=== PATIENT | female | born 2005 | race Caucasian/White ===

== ENCOUNTER 2024-03-06 18:48 | Emergency (ER) | payer OTHER, SELFPAY ==
[2024-03-06 18:59] VITALS: BP 124/58; PULSE 85; RESP 16; TEMP 37.1; O2SAT 100
[2024-03-06 19:20] LABS: EDUAAPPEAR Clear; EDUABILI Negative (Negative); EDUABLOOD Negative (Negative); EDUACOLOR1 Yellow; EDUAGLUCOSE Negative (Negative); EDUAKETONE Negative (Negative); EDUALEUKO Negative (Negative); EDUANITRATE Negative (Negative); EDUAPROTEIN Negative (Negative); EDUASPGRAVITY 1.015; EDUAUROBILI 0.2
--- NOTE | 2024-03-06 19:36 | ED.FEMALEGU ---
HPI - Female Genitourinary General Chief complaint: Urogenital-Female Stated complaint: UTI SYMPTOMS Time Seen by Provider: 03/06/24 19:07 Source: patient and RN notes reviewed Mode of arrival: ambulatory Limitations: no limitations History of Present Illness HPI Narrative: Patient presents today complaining of dysuria, malodorous urine, mild urinary frequency and lower abdominal cramping. Denies fever, nausea or vomiting, sweats or chills. No treatment prior to arrival. Review of Systems Review of Systems: CONSTITUTIONAL: Denies body aches, fever, chills, or sweats. EYES: Denies visual changes, redness, or discharge. ENT: Denies rhinorrhea, congestion, sore throat, or otalgia. CARDIOVASCULAR: Denies chest pain, palpitations, or edema. RESPIRATORY: Denies cough or dyspnea. GASTROINTESTINAL: Denies abdominal pain, nausea, vomiting, or diarrhea. GENITOURINARY: +dysuria, frequency, cramping, malodorous urine SKIN: Denies rash, itching, or wounds. MUSCULOSKELETAL: Denies back pain, joint pain, or myalgia. NEUROLOGIC: Denies headache, numbness, tingling, or weakness. PSYCH: Denies depression or anxiety. PMFSH Comments At time of signature, I have reviewed and agree with nursing past medical, surgical, social and family history unless otherwise noted. Please see nursing chart for further information. There is no relevant family history pertinent to the presenting complaint Exam Narrative: GENERAL: Well-appearing, well-nourished, and in no acute distress. HEAD: Normocephalic, atraumatic. EYES: EOMI. No redness or drainage. Conjunctivae normal. ENT: Mucous membranes pink and moist. NECK: Normal AROM. CHEST: No respiratory distress. Clear to auscultation. HEART: Regular rate and rhythm. No murmur appreciated. ABDOMEN: Soft, nontender, nondistended, normal active bowel sounds. EXTREMITIES: Normal range of motion. No edema. SKIN: Warm, dry, no rash. Capillary refill normal. Normal skin turgor. NEURO: No focal deficits. Alert and oriented x3. Gait steady. PSYCH: Normal affect. No signs of depression or anxiety. Course Course Level of Care: Express Care Visit Vital Signs Vital signs: Vital Signs Temperature 98.7 F 03/06/24 18:59 Pulse Rate 85 03/06/24 18:59 Respiratory Rate 16 03/06/24 18:59 Blood Pressure 124/58 L 03/06/24 18:59 Pulse Oximetry 100 03/06/24 18:59 Temperature 98.7 F 03/06/24 18:59 Pulse Rate 85 03/06/24 18:59 Respiratory Rate 16 03/06/24 18:59 Blood Pressure 124/58 L 03/06/24 18:59 Pulse Oximetry 100 03/06/24 18:59 Reviewed MDM - Female Genitourinary MDM Narrative Medical decision making narrative: Urinalysis is not consistent with infection at this time. Urine culture pending. Patient will be started on antibiotics if urine culture comes back positive. Patient agrees with plan. Anticipatory guidance given. Differential Diagnosis Differential diagnosis: Likely urinary tract infection, vaginitis and cystitis Lab Data Attestation: I reviewed the patient's lab results. Labs: Lab Results 03/06/24 Range/Units 19:04 POC Urine Color Yellow POC Urine Clarity Clear POC Urine pH 6.0 POC Ur Specif [place] 1.015 POC Urine Protein Negative (Negative) POC Ur Glucose (UA) Negative (Negative) POC Urine Ketones Negative (Negative) POC Urine Blood Negative (Negative) POC Urine Nitrite Negative (Negative) POC Urine Bilirubin Negative (Negative) POC Urine Urobilinogen 0.2 POC U Leukocyte Esteras Negative (Negative) Critical Care Time Critical Care Time Critical Care Time: No Discharge Plan Discharge Clinical Impression: Dysuria Patient Disposition: Home, Self-Care Condition: Stable Instructions: Dysuria (ED) Additional Instructions: Your urine is negative for infection today at [facility]. It will be sent to the hospital for culture and you will be called if that culture is positive
== END 2024-03-06 19:17 | disposition home or self-care (01) ==
PROVIDERS: Emergency Provider Nurse Practitioner
DX: R30.0 Dysuria (principal)
CPT/HCPCS: 81003; 87086; 99203; G0463

== ENCOUNTER 2025-05-21 16:03 | Emergency (ER) | payer OTHER, SELFPAY ==
--- NOTE | 2025-05-21 16:19 | ED_ITS ---
HPI - Female Genitourinary General Chief complaint: Urogenital-Female Stated complaint: POSSIBLE YEAST INFECTION Time Seen by Provider: 05/21/25 16:20 Source: patient Mode of arrival: ambulatory Limitations: no limitations History of Present Illness HPI Narrative: Gabriel is a 20-year-old female patient presenting to the clinic today with complaints of a possible yeast infection. She reports over the last day or 2 she has had itchy smelly vaginal discharge. States she has never had a yeast infection before but thinks she may have a yeast infection. Denies any new changes in soaps, shampoos, lotions, detergents, or lubrication. She is sexually active. Last menstrual period was 2 weeks ago. No concern for . No urinary symptoms. No blood in the vaginal discharge. Does report some vulva excoriation/redness. States that has a yeasty like smell to it. Related Data Allergies Allergy/AdvReac Type Severity Reaction Status Date / Time No Known Allergies Allergy Verified 05/21/25 16:37 Review of Systems Review of Systems: Pertinent positives per HPI. Patient denies any fever, chills, rash, headache, visual changes, dizziness, cough, runny nose, sore throat, shortness of breath, chest pain, palpitations, nausea, vomiting, diarrhea, constipation, abdominal pain, or any urinary issues. PMFSH Comments At the time of my signature, I reviewed and agree with the nursing past medical, surgical, social, and family history. There is no relevant family history pertinent to the patient complaint. Exam Narrative: General: Well-developed, well nourished, in no apparent distress. Head: Normocephalic, atraumatic. Cardio: Regular rate and rhythm, s1 and s2 normal, no murmur appreciated. Resp: Clear to auscultation bilaterally, no rhonchi, rales, wheezing or rubs. Abdomen: Soft, pliable, bowel sounds present in all quadrants, non-tender to palpation, no organomegly, no CVAT tenderness. : Deferred Course Course Level of Care: Express Care Visit MDM MDM Narrative Medical decision making narrative: At the time of visit patient is resting comfortably on the exam table. Patient appears to be nontoxic. Complaints of a possible yeast infection. She reports over the last day or 2 she has had itchy smelly vaginal discharge. States she has never had a yeast infection before but thinks she may have a yeast infection. Denies any new changes in soaps, shampoos, lotions, detergents, or lubrication. She is sexually active. Last menstrual period was 2 weeks ago. No concern for . No urinary symptoms. No blood in the vaginal discharge. Does report some vulva excoriation/redness. States that has a yeasty like smell to it. She is not necessarily concern for any sexually transmitted infections. On exam patient has soft, pliable, nondistended abdomen, nontender to palpation, no CVAT tenderness, no organomegaly, deferred-patient would like to self swab. Orders for BV and genital culture was placed. Patient also willing to give a so dirty urine to test for chlamydia, gonorrhea, Trichomonas. Labs: BV, genital culture, chlamydia, gonorrhea, and Trichomonas testing was sent to the lab. Plan: Patient believes she may have a yeast infection is having some vulvovaginal irritation with itchiness with yeast the smelling discharge. Prescription for fluconazole was sent to the pharmacy. Will wait for test results prior to any other treatment at this time. Supportive measures were discussed with the patient and they voiced understanding discharge instructions and agrees to treatment plan. Return precautions reviewed. Differential Diagnosis Differential Diagnosis: Differential diagnostic considerations for female urogenital issues include urinary tract infection, bacterial vaginosis, cervicitis, ovarian cyst, vaginitis, STI exposure, ovarian torsion, ectopic , cyst of Bartholin?s gland, cystitis, vaginal yeast infection, dysmenorrhea. Discharge Plan Discharge Clinical Impression: Vaginal discharge Patient Disposition: Home Condition: Stable Instructions: Antibiotic Form, Bacterial Vaginosis (ED), Yeast Infection (ED) Additional Instructions: Take fluconazole as prescribed We have tested you for STIs in the clinic today. Dirty urine was sent for chlamydia, gonorrhea, and Trichomonas testing Testing was also sent for bacterial vaginosis and genital culture which will test for yeast. Avoid any sexual activity- includes oral, anal, or vaginal intercourse until you get results back and have completed any additional recommended treatment regimens. We will contact you if testing is positive and make sure your treatment was appropriate for the type of STI. If symptoms worsen after treatment recommend reevaluation with your PCP or [facility] care. Patient Language: British Prescriptions: New fluconazole 150 mg tablet 150 mg PO ONCE Qty: 2 0RF Rx Instructions: as a single dose. May repeat in 72 hours if needed. Follow-up/Referrals: Minnie,Sandy [Other] Time of Disposition: 16:26 Quality NIHSS Nursing Documentation ED NIHSS nursing documentation: reviewed/agree
[2025-05-21 16:33] VITALS: BP 132/63; PULSE 83; RESP 16; TEMP 36.8; O2SAT 100
[2025-05-21 20:24] LABS: Trichomonas Vag PCR NOT DETECTED (NOT DETECTE)
== END 2025-05-21 16:33 | disposition home or self-care (01) ==
PROVIDERS: Emergency Provider Nurse Practitioner Family
DX: N89.8 Other specified noninflammatory disorders of vagina (principal); Z11.3 Encounter for screening for infections with a predominantly sexual mode of transmission
CPT/HCPCS: 87070; 87491; 87591; 87661; 87798; 99213; G0463